=== PATIENT | male | born 1935 | race Caucasian/White ===

== ENCOUNTER 2022-09-16 08:06 | Emergency (ER) | payer MEDICARE, OTHER ==
[~2022-09-16] VITALS: Ht 175.3 cm; Wt 68.0 kg
[~2022-09-16 08:06] MED LIST: ANTIHISTAMINE; FINASTERIDE5 MG PO; GLIPIZIDE-METF1 EAC1; LISINOPRIL40 MG PO; NIACIN500 M1 PO; SIMVASTATIN40 MG PO; TAMSULOSIN HCL0.4 MG PO; TYLENOL # 31 EA; ZOLPIDEM TARTRA10 MG PO
== END 2022-09-16 08:41 | disposition home or self-care (01) ==
LOC: ER 08:19
DX: M54.50 Low back pain, unspecified (principal); G89.29 Other chronic pain; I10 Essential (primary) hypertension; E11.9 Type 2 diabetes mellitus without complications; E78.5 Hyperlipidemia, unspecified
CPT/HCPCS: 99282